=== PATIENT | male | born 1975 | race Caucasian/White ===

== ENCOUNTER 2022-05-05 23:44 | Emergency (ER) | payer MEDICAID ==
[~2022-05-05] VITALS: Ht 182.9 cm; Wt 151.9 kg
[2022-05-06] MEDS ORDERED: LISINOPRIL10 MG PO (00:04)
[2022-05-06] MEDS ORDERED: DOXYCYCLINE HY100 MG PO (01:45)
== END 2022-05-06 02:07 | disposition home or self-care (01) ==
LOC: ED 23:44
DX: L03.115 Cellulitis of right lower limb (principal); E11.40 Type 2 diabetes mellitus with diabetic neuropathy, unspecified; Z88.1 Allergy status to other antibiotic agents; Z79.899 Other long term (current) drug therapy
CPT/HCPCS: 99283; A9270